=== PATIENT | female | born 1965 | race African-American/Black ===

== ENCOUNTER 2017-11-20 10:28 | Emergency (ER) | payer OTHER ==
[~2017-11-20] VITALS: Ht 157.5 cm; Wt 54.0 kg
[~2017-11-20 10:28] MED LIST: AMT10 PO; LISI-461 PO; METH500T37 PO
[2017-11-20 10:36] VITALS: TEMP 36.7; Ht 157.5 cm; Wt 54.0 kg
[2017-11-20] MEDS ORDERED: DiphenhydrAMINE HCL 50 MG/ML VIAL IV STA (11:05)
[2017-11-20] MEDS ORDERED: KETOROLAC TROMETHAMINE 30 MG/ML VIAL IV STA (11:05)
[2017-11-20] MEDS ORDERED: METOCLOPRAMIDE HCL INJ 5 MG/ML 2 ML VIAL IV. STA (11:05)
[2017-11-20] MEDS ORDERED: SODIUM CHLORIDE 0.9% 1000ML 2,000 ML IV STA (11:05)
[2017-11-20] MEDS ORDERED: AMLO-110 PO (11:23)
--- NOTE | 2017-11-20 11:31 | EMERGENCY ROOM VISIT NOTE ---
History Report prepared by Natacha: Lee Wolf Under the Supervision of: Dr. Pk Tam M.D. First contact with patient: 11:03 Chief Complaint: HEADACHE Stated Complaint: FATIGUE, MIGRAINE, CONFUSION History of Present Illness The patient is a 52 year old female who presents to the Emergency Room with complaints of a waxing and waning headache since this morning. The patient's family states that the patient woke up with a migraine this morning around 0700. They state that the patient was doing housework yesterday. The patient has a history of migraines, and she was last in the ED for them in August. The patient does not have any fever, chills, cough, congestion, nausea, vomiting , or diarrhea, and the family states that no one in the house is currently sick. The family notes that the patient's headache is so bad that she cannot stay awake. The patient states that the light does not make the headache worse. The patient got a skin biopsy on her left foot three days ago. Source of History: patient, family Onset: this morning around 0700 Position: head Quality: ache Timing: waxes/wanes Associated Symptoms: + fatigue, No fevers, No chills, No cough, No nausea, No vomiting, No diarrhea Review of Systems See HPI for pertinent positives and negatives. A total of ten systems were reviewed and were otherwise negative. Past Medical & Surgical Medical Problems: (1) HTN (hypertension) (2) Syst Lupus Erythematosis Surgical Problems: (1) S/P abdominal hysterectomy (2) S/P herniorrhaphy (3) S/P tonsillectomy and adenoidectomy Social History Smoking Status: Never Smoker Alcohol Use: none Marital Status: in relationship Housing Status: lives with family Current/Historical Medications Scheduled Amitriptyline HCl (Amitriptyline HCl), 10 MG PO HS Amlodipine (Norvasc), 5 MG PO DAILY Lisinopril (Lisinopril), 10 MG PO DAILY Methocarbamol (Robaxin), 500 MG PO TID Allergies Coded Allergies: Dried Fruit (Unverified Allergy, Unknown, ., 11/20/17) ALL FRUIT Fruit Extracts (Unverified Allergy, Unknown, ., 11/20/17) ALL FRUIT NUTS (Verified Allergy, Unknown, THROAT CLOSES, 11/20/17) Plums (Verified Allergy, Unknown, THROAT CLOSES, 11/20/17) Physical Exam Vital Signs Date Time Temp Pulse Resp B/P (MAP) Pulse Ox O2 Delivery O2 Flow Rate FiO2 11/20/17 14:18 79 16 149/99 99 11/20/17 13:30 72 16 154/93 98 Room Air 11/20/17 12:40 69 14 168/100 100 Room Air 11/20/17 11:41 80 14 183/109 100 Room Air 11/20/17 10:36 36.7 78 18 187/112 99 Room Air Physical Exam GENERAL: Awake, alert, uncomfortable-appearing, in no distress, opens eyes and interacts with soft voice. HENT: Normocephalic, atraumatic. Oropharynx unremarkable. Dry mucous membranes EYES: Normal conjunctiva. Sclera non-icteric. NECK: Supple. No nuchal rigidity. FROM. No JVD. RESPIRATORY: Clear to auscultation. CARDIAC: Regular rate, normal rhythm. Extremities warm and well perfused. Pulses equal. ABDOMEN: Soft, non-distended. No tenderness to palpation. No rebound or guarding. No masses. RECTAL: Deferred. MUSCULOSKELETAL: Chest examination reveals no tenderness. The back is symmetrical on inspection without obvious abnormality. There is no CVA tenderness to palpation. No joint edema. LOWER EXTREMITIES: Calves are equal size bilaterally and non-tender. No edema. No discoloration. NEURO: Normal sensorium. No sensory or motor deficits noted. Normal cerebellar function with [id number], alternating palms, [id number] SKIN: No rash or jaundice noted. Pinpoint skin biopsy site on dorsum of left foot and left upper lateral leg without erythema, discharge, or warmth. Medical Decision & Procedures Medications Administered Medications (Trade) Dose Ordered Sig/Davis Route Start Time Stop Time Status Last Admin Dose Admin Sodium Chloride 2,000 ml @ 999 mls/hr Q2H1M STAT IV 11/20/17 11:05 11/20/17 13:05 DC 11/20/17 11:32 999 MLS/HR Ketorolac Tromethamine (Toradol Inj) 15 mg NOW STAT IV 11/20/17 11:05 11/20/17 11:11 DC 11/20/17 11:33 15 MG Metoclopramide HCl (Reglan Inj) 10 mg NOW STAT IV. 1/24/18 11:05 11/20/17 11:11 DC 11/20/17 11:33 10 MG Diphenhydramine HCl (Benadryl Inj) 25 mg NOW STAT IV 11/20/17 11:05 11/20/17 11:11 DC 11/20/17 11:33 25 MG ED Course 1103: The patient was evaluated in room C5. A complete history and physical exam was performed. 1340: I reevaluated the patient. Discussed results and discharge instructions: she verbalized understanding and agreement. The patient is ready for discharge. Medical Decision I reviewed the patient's past medical history, medications, and the nursing notes as described above. The patient's presentation and history were concerning for etiologies such as migraine headache, meningitis, sinusitis, CO exposure, ICH, SAH, infection, tumor, headache, sinus thrombosis, arterial dissection, as well as others were entertained. The patient is a 52 y/o woman with a pmhx of migraine HAs presents to the emergency department with migraine, which began this morning and gradually became worse per HPI. On arrival the patient is uncomfortable but in NAD. AFVSS. Neuro intact. Neck supple. Patient reports symptoms are typical for her migraines. No indication for labs or imaging given presentation c/w patient's migraines. Patient given IVF and migraine cocktail good effect and resolution of migraine. Plan for pcp f/u. Findings and plan for follow-up reviewed with patient. Patient agreeable and d/c'd per discharge instructions. Medication Reconcilliation Current Medication List: was personally reviewed by me Blood Pressure Screening Patient's blood pressure: Elevated blood pressure Blood pressure disposition: Elevated BP felt to be situational Impression Primary Impression: Migraine Scribe Attestation The scribe's documentation has been prepared under my direction and personally reviewed by me in its entirety. I confirm that the note above accurately reflects all work, treatment, procedures, and medical decision making performed by me. Departure Information Dispostion Home / Self-Care Referrals Rahel Alcala D.O. (PCP) Forms HOME CARE DOCUMENTATION FORM, IMPORTANT VISIT INFORMATION Patient Instructions ED Headache Migraine, My [facility] Additional Instructions Please follow up with your primary care physician in the next 1-3 days for re- evaluation. You were treated for your migraine headache and felt improved. Otherwise, your exam did not show signs of an emergent condition at this time. Continue your current medications. Drink plenty of fluids to ensure hydration. Return to the emergency department for worsening symptoms as described in the accompanying instructions.
[2017-11-20 14:18] VITALS: BP 149/99; PULSE 79; O2SAT 99
== END 2017-11-20 14:19 | disposition home or self-care (01) ==
LOC: C.EDB 10:29 → C.EDC 14:19
DX: G43.909 Migraine, unspecified, not intractable, without status migrainosus (principal); I10 Essential (primary) hypertension; M32.9 Systemic lupus erythematosus, unspecified; Z90.710 Acquired absence of both cervix and uterus; Z79.899 Other long term (current) drug therapy